=== PATIENT | female | born 1995 | race Caucasian/White ===

== ENCOUNTER 2022-11-01 18:08 | Observation (INO) | payer MEDICAID, SELFPAY ==
[2022-11-01 18:10] VITALS: BP 130/76; PULSE 84; RESP 20; TEMP 36.8; O2SAT 94; BMI 28.9
--- NOTE | 2022-11-01 18:50 | HP.PCM.HOS_ITS ---
HPI - General General Date of Admission: 11/01/22 Date of Service: 11/01/22 Chief Complaint: Acute Opiate Withdrawal. HPI Narrative The patient is a 27 y/o F w/ PMHx: Asthma, Anxiety and Depression/Bipolar disorder, Tobacco use, Polysubstance abuse (Fentanyl, Cocaine, smoked, approximately 1 g daily) who presents to the [facility] ED on 11/01/22 with history of approximately 1 week of productive cough of green sputum worsening with congestion, dyspnea and ongoing coughing bouts with fatigue and malaise as well as sweats although no fevers with unclear ill contacts with notable wheezing in addition to decision for detoxification with last opioid usage approximately 8 hours prior to presentation with onset of patient reported abdominal discomfort, generalized body aches, fatigue, restlessness, diaphoresis and yawning interested in obtaining clean status at this time. She notes that she only smokes both fentanyl and the cocaine and uses approximately 1 g daily. Work-up in the ED included T98.2, heart rate 84, BP 130/76, respiratory rate 20, 84% on room air, pending CBC, CMP, urine drug screen, ethyl alcohol level, chest x-ray upon requested evaluation of patient. serum testing is also pending and discussed with ED physician that as long as her testing was negative we could proceed with admission. In the ED given significant wheezing and pulmonary complaints as discussed with ED physician patient ministered burst pre dnisone 40 mg p.o. x1 as well as albuterol and COVID rapid antigen pending. PFSH Medical History Asthma Bipolar 1 disorder Polysubstance abuse Tobacco use Home Medications gabapentin 800 mg tablet 800 mg PO TID 11/01/22 [History Last Taken Unknown] quetiapine 400 mg tablet 400 mg PO QHS 11/01/22 [History Last Taken Unknown] Allergy/AdvReac Type Severity Reaction Status Date / Time No Known Allergies Allergy Verified 11/01/22 18:10 Family History (Updated 11/01/22 @ 19:[address] Daylin Nichols MD) Mother CAD (coronary artery disease) Heart disease Hypertension Myocardial infarction other (Patient does not know her father nor his medical history.) Surgical History (Updated 11/01/22 @ 19:[address] Daylin Nichols MD) History of appendectomy S/P tonsillectomy and adenoidectomy Social History (Updated 11/01/22 @ 19:[address] Daylin Nichols MD) household members: none Smoking Status: Current every day smoker tobacco type: cigarettes Smoking packs per day: 2 Smoking cigarettes per day: 40.0 alcohol intake: current alcohol intake frequency: a few times a month substance use type: crack/cocaine and other details: Fentanyl, Cocaine, both she notes smoking, ~ 1 gm daily, denies IVDA. ROS ROS Narrative Admission Review of Systems: CONSTITUTIONAL: No weight loss, fever, + chills, weakness or fatigue. HEENT: + Congestion, hoarse with coughing, sore throat. Eyes: No visual loss, blurred vision, double vision or yellow sclerae. Ears, Nose, Throat: No hearing loss. SKIN: No rash or itching, lesions, wounds. CARDIOVASCULAR: No chest pain, chest pressure or chest discomfort, palpitations, edema, orthopnea, syncopal events. RESPIRATORY: + Shortness of breath, cough with productive sputum, wheezing. No hemoptysis. GASTROINTESTINAL: + anorexia, general abdominal discomfort/cramping. No nausea, vomiting or diarrhea, melena, BRBPR. GENITOURINARY: No dysuria, frequency, urgency or retention. NEUROLOGICAL: + Restlessness. No headache, dizziness, syncope, paralysis, ataxia, numbness or tingling in the extremities, focal weakness, change in bowel or bladder control, seizure. MUSCULOSKELETAL: + muscle, back pain, joint pain or stiffness. HEMATOLOGIC: No anemia, bleeding or bruising. LYMPHATICS: No enlarged nodes. No history of splenectomy. PSYCHIATRIC: + history of depression or anxiety. ENDOCRINOLOGIC: + reports of sweating, cold or heat intolerance. No polyuria or polydipsia. ALLERGIES: + history of asthma, rhinitis. Vital Signs Vital Signs Vital Signs: 11/01/22 18:10 Temperature 98.2 F Temperature Source Temporal Pulse Rate 84 Respiratory Rate 20 H Blood Pressure 130/76 H Blood Pressure Mean 94 Pulse Ox 94 Oxygen Delivery Method Room Air Weight Weight: 190 lb 3.2 oz Body Mass Index (BMI) 28.9 Physical Exam Narrative Physical Examination: General: Awakens to stimuli, alert once interacting, oriented times greater than 3, following commands, seated upright in the ED bed, fatigued and ill-appearing, mildly unkempt. Skin: Normal color, normal turgor, no icterus, no cyanosis except occasional abrasion. HEENT: AT/NC, EOMI, PERRLA, M dry M, no carotid bruits or JVD noted. Lungs: Tight, severely diminished, diffuse expiratory wheezing, mildly increased respiratory rate but no distress, no obvious marked rales or rhonchi. Heart: Regular rate and rhythm; no gallop, rub audible. Abdomen: Soft, overweight, NTTP, hyperactive BS, no marked distention, no appreciated HSM. Extremities: No cyanosis, clubbing, or edema. Neurological: Patient awake, alert, oriented as noted, cognitive function suspect mildly decreased from baseline; pupils equally reactive to light and accommodation, cranial nerves II-XII grossly normal, moving all 4 extremities, no focal deficits, strength moderately to severely global decrease secondary to acute presentation complaints, initially significantly fatigued and lethargic but awakens with discussion Psychiatric: Affect appears flat, fatigued, ill-appearing, no acute evidence of depressive or anxiety feelings but does have underlying notable history. Results Lab / Micro Data 11/01/22 18:49 Assessment & Plan Assessment/Plan (1) Opiate withdrawal: PLAN: Plan The patient is a 27 y/o F w/ PMHx: Asthma, Anxiety and Depression/Bipolar disorder, Tobacco use, Polysubstance abuse (Fentanyl, Cocaine) who presents to the [facility] ED on 11/01/22 with acute opiate withdrawal requesting detoxification. #1. Acute Opiate Withdrawal: Routine labs including CBC, CMP, urine for drug screen obtained in the ED and pending upon requested evaluation of patient, if testing is negative then will plan admission to the medical surgical floor and will initiate and continue on protocol with tapering course of Subutex, as needed tylenol, ibuprofen, bowel regimen, gabapentin, Bentyl, Vistaril, methocarbamol, clonidine, PRN nightly trazodone for insomnia, IV fluids, IV antiemetics. Once patient clinically improved and completion of taper nearing will plan consultation with case management for transition to next level of rehabilitation care. #2. Chronic asthma with Acute Exacerbation and Suspected Acute Bronchitis: Patient in the ED with wheezing with albuterol administrations, currently per list outpatient does not appear to be on any regimen, will have as needed a lbuterol if necessary, and given presentation will also maintain in the interim on ATC budesonide therapy, will continue burst prednisone therapy initiated in the ED, will obtain full respiratory viral panel, COVID antigen pending per ED, sputum requested, will place on Mucinex, procalcitonin requested, encourage tobacco cessation, given description of productive cough with green sputum and symptoms ongoing for at least a week with dyspnea, congestion and chills we will add antibiotics (oral cefdinir) at this time but certainly can de-escalate if appropriate. CXR pending upon evaluation of patient and if marked appearing, may alter abx as needed. #3. Polysubstance Abuse: Given significant polysubstance abuse history we will obtain HIV, hepatitis as well as RPR given significant findings in the community. If patient is hepatitis C positive she would currently not candidate for hep C treatment currently as needs to be clean, sober x 6 months, documented attendance NA or AA meetings, counseling and ongoing negative drug screens. Encouraged PCP establishment and follow-up. #4. Anxiety depression/bipolar disorder: We will continue patient home Seroquel regimen but currently clarifying if this is the only medication if she is actively taking also, although would benefit from continued ongoing counseling given substance abuse as her psychiatric disorders likely contributing to on going usage. #5. Tobacco Abuse: Encouraged cessation, inpatient consultation per RT, NR if desired. #6. DVT Prophylaxis: Low risk, encourage ambulation. Charges/Coding Visit Charges Inpatient E&M: 86912 Init Hosp L3
--- NOTE | 2022-11-01 18:55 | RAD_ITS ---
STUDY: X-RAY CHEST REASON FOR EXAM: Female, 27 years old. CHEST PAIN wheezing TECHNIQUE: XR Chest 1 View COMPARISON: None FINDINGS: There is no demonstrated pleural abnormality. There is bilateral infiltrate / atelectasis. Normal size heart. Normal mediastinum and ruddy. Normal visualized pulmonary arteries. Normal visualized aortic arch and descending thoracic aorta. Normal visualized thoracic spine. Normal visualized ribs, clavicles, and shoulders. There are no acute findings of the upper abdomen. RAD/Chest 1 View (Portable) IMPRESSION: There are bilateral pleural effusions. There are bilateral infiltrates. Electronically Signed: Micah Dumont MD at 19:26 EDT ,
[2022-11-01 19:23] LABS: ALB/GLOB Ratio 0.7 RATIO (0.9-2.4); AST(SGOT) 22 U/L (15-37); Alanine Aminotransfer ALT/SGPT 20 U/L (13-56); Albumin, Serum 2.5 g/dL (3.2-5.0); Alkaline Phosphatase 71 U/L (45-117); Anion Gap 9 (5-15); BUN 8 mg/dL (7-18); BUN/Creat Ratio 13.1 RATIO (10-20); Calcium,Total 7.6 mg/dL (8.5-10.1); Chloride 105 mmol/L (98-107); Creatinine, Serum 0.61 mg/dL (0.55-1.02); EST Glomerular Filtration Rate 126 mL/min (>60); Est Glom Filt Rate - Afr Amer 153 mL/min (>60); Estimated Creatinine Clearance 142.22 ml/min; Globulin 3.8 g/dL (2.2-4.2); Glucose 90 mg/dL (74-106); Potassium 3.4 mmol/L (3.5-5.1); Protein, Total 6.3 g/dL (6.4-8.2); Sodium Level 136 mmol/L (136-145)
[2022-11-01 19:24] LABS: Amphetamine Urine VISTA NEGATIVE (<1000 ng/mL); Barbiturate Urine VISTA NEGATIVE (< 200 ng/mL); Benzodiazepine Urine VISTA POSITIVE (< 200 ng/mL); Cocaine Urine VISTA POSITIVE (< 300 ng/mL); Ecstacy Urine VISTA POSITIVE (< 500 ng/mL); Methadone Urine VISTA NEGATIVE (< 300 ng/mL); PCP Urine VISTA NEGATIVE (< 25 ng/mL); THC Urine VISTA POSITIVE (< 50 ng/mL); Vista UDS pH Range 5
[2022-11-01 19:31] LABS: Absolute Lymphocyte Count 2.35 X10^3/uL (0.83-4.51); Absolute Neutrophil Count 10.6 X10^3/uL (2.0-7.7); Basophil# 0.02 X10^3/uL; Basophil% 0.1 % (0-1); Eosinophil# 0.28 X10^3/uL; Hematocrit 36.8 % (37-47); Hemoglobin 12.3 g/dL (12.0-15.0); Lymphocyte # 2.35 X10^3/ul (0.83-4.51); Lymphocyte % 16.9 % (19-41); Mean Corp Hgb Conc 33.4 g/dL (32-36); Mean Corpuscular Hgb 29.5 pg (27.0-32.0); Mean Corpuscular Volume 88.2 fL (81-99); Mean Platelet Vol. 8.7 fl (6.2-12.0); Monocyte# 0.61 X10^3/uL; Monocyte% 4.4 % (0-10); NRBC Flagged by Analyzer 0 % (0-5); Neutrophil # 10.59 X10^3/uL (2.7-7.7); Neutrophil % 76.2 % (47-70); Platelet Count 271 K/mm3 (150-450); RBC Distribution Width CV 12.1 % (11.6-14.6); RBC Distribution Width SD 39.1 fl (35.1-43.9); Red Blood Count 4.17 M/mm3 (4.2-5.4); White Blood Count 13.9 K/mm3 (4.4-11.0)
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
[2022-11-01] MEDS: Albuterol Sulfate 8 gm Inhaler (60 puffs) 4 PUFF INHALATION (19:41)
[2022-11-01] MEDS: INHALER, ASSIST DEVICES 1 EACH SPACER INHALATION (19:42)
[2022-11-01] MEDS: predniSONE 20 MG Tablet 40 MG PO (19:53)
[2022-11-01 19:55] LABS: Internal QC Validated? YES +Cl - CLEAR BKGD; Pregnancy, Serum, hCG Quali. NEGATIVE Negative
[2022-11-01 20:00] LABS: Alcohol, Blood (Medical)-Serum < 3.0 mg/dL
[2022-11-01 20:21] LABS: Magnesium 2.3 mg/dL (1.6-2.6)
[2022-11-01 20:31] LABS: HIV - WCH Non-Reactive (Nonreactive); Procalcitonin < 0.01 ng/mL (0.00-0.09); Syphilis Antibodies Non-reactive
[2022-11-01 20:52] VITALS: BP 130/76; PULSE 84; RESP 18; TEMP 36.8; O2SAT 94
--- NOTE | 2022-11-01 21:27 | ED.RN ---
Original blood drawn from right foot d/t pt being a hard stick. Multiple attempts at IV for antibiotics. 24G IV to left wrist with blood cultures done. Unsuccesful at getting second set of cultures. MD notified and ok to start antibiotics.
[2022-11-01] MEDS: Azithromycin 500 MG in Dextrose 5%-Water (250mL Bag) 250 ML 250 MG IV (21:43)
[2022-11-01 21:44] VITALS: BP 139/76; PULSE 86; RESP 17; O2SAT 93
[2022-11-01 22:08] VITALS: BP 141/82; PULSE 62; RESP 17; TEMP 37.1; O2SAT 96
[2022-11-01 22:10] VITALS: BMI 27.6
[2022-11-01] MEDS: Cefdinir 300 MG Capsule PO (22:33)
[2022-11-01] MEDS: guaiFENesin 1,200 MG Tablet 1200 MG PO (22:33)
[2022-11-01] MEDS: QUEtiapine 100 MG Tablet PO (22:33)
[2022-11-01] MEDS: Azithromycin 250 MG Tablet 500 MG PO (22:34)
[2022-11-01] MEDS: Lactated Ringers 1,000 ML 125 ML IV (22:44)
[2022-11-01] MEDS: Potassium Chloride Oral Tablet 20 MEQ 40 MEQ PO (22:44)
[2022-11-01] MEDS: Gabapentin 800 MG Tablet PO (22:44)
[2022-11-01 23:02] LABS: Hepatitis B Surface Antibody Non-Reactive; Hepatitis B Surface Antigen Non-Reactive (Nonreactive); Hepatitis C Antibody Non-Reactive (Nonreactive)
[2022-11-01 23:30] VITALS: O2SAT 99
[2022-11-02] VITALS (7 sets, daily range): BP systolic 127–150; BP diastolic 71–82; PULSE 71–85; RESP 16–24; TEMP 36.9–37.3; O2SAT 91–96
[2022-11-02] MEDS: Gabapentin 800 MG Tablet PO ×3 (06:36→22:32)
[2022-11-02] MEDS: Budesonide Respules 0.5 MG/2 ML AMPUL.NEB. INHALATION (06:54)
--- NOTE | 2022-11-02 08:18 | NURSING ---
0700 and 0800 COWS assessment not completed per order d/t pt sleeping.
[2022-11-02] MEDS: QUEtiapine 100 MG Tablet PO ×2 (10:28→22:32)
[2022-11-02] MEDS: Cefdinir 300 MG Capsule PO (10:28)
[2022-11-02] MEDS: predniSONE 20 MG Tablet 40 MG PO (10:28)
[2022-11-02] MEDS: guaiFENesin 1,200 MG Tablet 1200 MG PO ×2 (10:28→22:31)
[2022-11-02] MEDS: Ibuprofen 600 MG Tablet PO (14:02)
--- NOTE | 2022-11-02 16:11 | PCM.PN.HOSP ---
Reason for Visit Reason for Visit: Diagnoses Opioid use, unspecified with withdrawal (11/01/22) Subjective Subjective She reports some chest wall pain when taking deep breaths and cough but does feel better than when she presented Objective Data Objective Data Vital Signs: Vital Signs Temp Pulse Resp BP Pulse Ox O2 Del Method O2 Flow Rate 99.2 F H 85 16 139/81 H 92 Nasal Cannula 2 11/02/22 13:56 11/02/22 13:56 11/02/22 13:56 11/02/22 13:56 11/02/22 13:56 11/02/22 13:56 11/02/22 13:56 Oxygen Flow Rate (L/min) 2 Oxygen Delivery Method Nasal Cannula Weight: 82.4 kg Body Mass Index (BMI) 27.6 Intake & Output: Intake and Output for Last 24 Hours 10/31/22 11/01/22 11/02/22 23:59 23:59 23:59 Intake Total 263.33 / 263.33 1741.67 / 1741.67 Balance 263.33 / 263.33 1741.67 / 1741.67 Lab / Micro Data 11/01/22 19:10 11/01/22 18:49 Labs: Laboratory Results - last 24 hr 11/01/22 18:49: Sodium 136, Potassium 3.4 L, Chloride 105, Carbon Dioxide 22.0, Anion Gap 9, BUN 8, Creatinine 0.61, Estim Creat Clear Calc 142.22, Est GFR (MDRD) Af Amer 153, Est GFR (MDRD) Non-Af 126, BUN/Creatinine Ratio 13.1, Glucose 90, Calcium 7.6 L, Total Bilirubin 0.40, AST 22, ALT 20, Alkaline Phosphatase 71, Total Protein 6.3 L, Albumin 2.5 L, Globulin 3.8, Albumin/Globulin Ratio 0.7 L 11/01/22 18:51: Urine Opiates Screen NEGATIVE, Urine Methadone Screen NEGATIVE, Ur Barbiturates Screen NEGATIVE, Ur Phencyclidine Scrn NEGATIVE, Ur Amphetamines Screen NEGATIVE, MDMA (Ecstasy) Screen POSITIVE H, U Benzodiazepines Scrn POSITIVE H, Urine Cocaine Screen POSITIVE H, U Cannabinoids Screen POSITIVE H, Ur Drug Screen Comment 11/01/22 19:10: WBC 13.9 H, RBC 4.17 L, Hgb 12.3, Hct 36.8 L, MCV 88.2, MCH 29.5, MCHC 33.4, RDW Std Deviation 39.1, RDW Coeff of Reema 12.1, Plt Count 271, MPV 8.7, Immature Gran % (Auto) 0.400, Neut % (Auto) 76.2 H, Lymph % (Auto) 16.9 L, [place] % (Auto) 4.4, Eos % (Auto) 2.0, Baso % (Auto) 0.1, Absolute Neuts (auto) 10.6 H, Absolute Lymphs (auto) 2.35, Nucleated RBC % 0, Magnesium 2.3, Procalcitonin < 0.01, Serum , Qual NEGATIVE, Ethyl Alcohol < 3.0, Syphilis Total Ab Non-reactive, HIV 1&2 Antibody Non-Reactive 11/01/22 22:02: Hep Bs Antigen Non-Reactive, Hep Bs Antibody Non-Reactive, Hepatitis C Antibody Non-Reactive Micro: Microbiology 11/01/22 22:30 Sputum, Expectorated/Coughed Gram Stain - Final 11/01/22 22:17 Mucosa - Nasopharyngeal Respiratory Panel (PCR) - Final 11/01/22 18:49 Urine, Clean Catch Legionella Antigen - Final 11/01/22 18:49 Urine, Clean Catch Streptococcus pneumoniae Antigen (M - Final Streptococcus pneumonia Ag 11/01/22 19:10 Nasal Secretion SARS-CoV-2 Antigen (Rapid) - Final Radiography Diagnostic Testing: Radiology Impression Chest X-Ray 11/01/22 18:55 IMPRESSION: There are bilateral pleural effusions. There are bilateral infiltrates. Electronically Signed: Micha Dumont MD at 19:26 EDT Reading Location ID and State: [facility] / ID , Service support , Physical Exam Narrative General: Alert, oriented, no apparent distress HEENT: Atraumatic, normocephalic Eyes: Anicteric, normal conjunctiva, extraocular movements grossly intact Neck: Supple Respiratory: Somewhat diminished at right base, normal respiratory effort Cardiovascular: Regular rate and rhythm GI: Soft, nontender, nondistended Extremities: No edema Musculoskeletal: Moving all extremities Neuro: No overt focal neurological deficits Skin: No rashes appreciated Psych: Cooperative Assessment & Plan Assessment/Plan (1) Opiate withdrawal: PLAN: Plan The patient is a 27 y/o F w/ PMHx: Asthma, Anxiety and Depression/Bipolar disorder, Tobacco use, Polysubstance abuse (Fentanyl, Cocaine) who presents to the [facility] ED on 11/01/22 with acute opiate withdrawal requesting detoxification. #Acute opiate withdrawal - Subutex taper initiated - As needed Tylenol, ibuprofen, bowel regimen, gabapentin, Bentyl, Vistaril, methocarbamol, clonidine - As needed trazodone nightly - As needed antiemetics -UDS positive for MDMA, benzodiazepines, cocaine, cannabinoid patient reported fentanyl and cocaine but did not note other drug use, will need to monitor closely for any other kinds of withdrawal -Once patient begins to clinically improve will discuss further discharge planning #Hypoxia secondary to community-acquired pneumonia -Patient was 84% on room air in ED, chest x-ray with bilateral infiltrates and white blood cell count 13.9 -Sputum culture with gram-positive diplococci and urine antigen positive for strep pneumo -given patient 92% on 2 L O2 will switch to IV antibiotics and treat with Rocephin, can continue azithromycin at this time but will likely be able to de-escalate -Has had some chest wall pain, suspect this is pleuritic secondary to pneumonia, supportive care -Continue p.o. prednisone and Mucinex, additionally patient on inhaled budesonide, albuterol as needed -Add incentive spirometry #Polysubstance use -Strongly advise cessation -UDS as above -Hepatitis, syphilis, HIV nonreactive #Anxiety depression/bipolar disorder: Patient continuing on Seroquel and gabapentin #Tobacco Abuse: Encouraged cessation, inpatient consultation per RT, NR if desired. #DVT Prophylaxis: Low risk, encourage ambulation. Time spent in the patient's overall evaluation,decision-making process, review of diagnostic data, adjustment of management, discussion with other providers, nursing nursing and ancillary staff involved in patient's care documentation, 36 minutes Charges/Coding Visit Charges Inpatient E&M: 62572 Subs Hosp L2
[2022-11-02] MEDS: 0.9% Saline Lock 10 ML Syringe IV (21:57)
[2022-11-02] MEDS: Ceftriaxone 1 GM/50 ML BAG IV (21:57)
[2022-11-02] MEDS: Azithromycin 250 MG Tablet 500 MG PO (22:31)
[2022-11-02] MEDS: Buprenorphine HCl 2 MG TAB.SUBL SL (22:31)
[2022-11-03] VITALS (8 sets, daily range): BP systolic 140–166; BP diastolic 85–98; PULSE 81–99; RESP 16–20; TEMP 36.4–37; O2SAT 95–98
[2022-11-03] MEDS: cloNIDine HCl 0.1 MG Tablet PO ×2 (03:47→13:11)
[2022-11-03] MEDS: hydrOXYzine PAM 25 MG Capsule 50 MG PO ×3 (03:47→18:47)
[2022-11-03] MEDS: hydrALAZINE 20 MG/ML Vial 10 MG IV (03:56)
[2022-11-03] MEDS: Buprenorphine HCl 2 MG TAB.SUBL SL ×2 (05:15→13:10)
[2022-11-03] MEDS: Gabapentin 800 MG Tablet PO ×2 (05:15→13:10)
[2022-11-03] MEDS: Budesonide Respules 0.5 MG/2 ML AMPUL.NEB. INHALATION ×2 (07:01→19:32)
--- NOTE | 2022-11-03 08:02 | PN.HOSP_ITS ---
Reason for Visit Reason for Visit: Diagnoses Opioid use, unspecified with withdrawal (11/01/22) Subjective Subjective Patient 89 and restless today, did admit to benzodiazepine use, does feeling her breathing slightly better, no change with cough Objective Data Objective Data Vital Signs: Vital Signs Temp Pulse Resp BP Pulse Ox O2 Del Method O2 Flow Rate 98.6 F 81 19 H 151/85 H 96 Nasal Cannula 3 11/03/22 04:00 11/03/22 07:01 11/03/22 07:01 11/03/22 04:59 11/03/22 07:01 11/03/22 07:01 11/03/22 07:01 Oxygen Flow Rate (L/min) 3 Oxygen Delivery Method Nasal Cannula Weight: 82.4 kg Body Mass Index (BMI) 27.6 Intake & Output: Intake and Output for Last 24 Hours 11/01/22 11/02/22 11/03/22 23:59 23:59 23:59 Intake Total 263.33 / 263.33 2791.67 / 2791.67 Balance 263.33 / 263.33 2791.67 / 2791.67 Lab / Micro Data 11/01/22 19:10 11/01/22 18:49 Micro: Microbiology 11/01/22 22:30 Sputum, Expectorated/Coughed Gram Stain - Final 11/01/22 22:30 Sputum, Expectorated/Coughed Respiratory Culture - Preliminary Streptococcus pneumoniae 11/01/22 22:17 Mucosa - Nasopharyngeal Respiratory Panel (PCR) - Final 11/01/22 18:49 Urine, Clean Catch Legionella Antigen - Final 11/01/22 18:49 Urine, Clean Catch Streptococcus pneumoniae Antigen (M - Final Streptococcus pneumonia Ag 11/01/22 19:10 Nasal Secretion SARS-CoV-2 Antigen (Rapid) - Final Physical Exam Narrative General: Alert, oriented, no apparent distress HEENT: Atraumatic, normocephalic Eyes: Anicteric, normal conjunctiva, extraocular movements grossly intact Neck: Supple Respiratory: Improving respiratory effort, normal respiratory effort Cardiovascular: Regular rate and rhythm GI: Soft, nontender, nondistended Extremities: No edema Musculoskeletal: Moving all extremities Neuro: No overt focal neurological deficits Skin: No rashes appreciated Psych: Cooperative Assessment & Plan Assessment/Plan (1) Opiate withdrawal: PLAN: Plan The patient is a 27 y/o F w/ PMHx: Asthma, Anxiety and Depression/Bipolar disorder, Tobacco use, Polysubstance abuse (Fentanyl, Cocaine) who presents to the [facility] ED on 11/01/22 with acute opiate withdrawal requesting detoxification. #Acute opiate withdrawal and benzo withdrawal - Subutex taper initiated - As needed Tylenol, ibuprofen, bowel regimen, gabapentin, Bentyl, Vistaril, methocarbamol, clonidine - As needed trazodone nightly - As needed antiemetics -UDS positive for MDMA, benzodiazepines, cocaine, cannabinoid patient reported fentanyl and cocaine but did not note other drug use, will need to monitor closely for any other kinds of withdrawal -Once patient begins to clinically improve will discuss further discharge planning -11/03: Continue Subutex taper and supportive care, patient reports that she was taking a green Klonopin 3 times daily for a long time before coming in, will add phenobarbital #Hypoxia secondary to community-acquired pneumonia secondary to strep pneumonia -Patient was 84% on room air in ED, chest x-ray with bilateral infiltrates and white blood cell count 13.9 -Sputum culture with gram-positive diplococci and urine antigen positive for strep pneumo -given patient 92% on 2 L O2 will switch to IV antibiotics and treat with Rocephin, can continue azithromycin at this time but will likely be able to de- escalate -Has had some chest wall pain, suspect this is pleuritic secondary to pneumonia, supportive care -Continue p.o. prednisone and Mucinex, additionally patient on inhaled budesonide, albuterol as needed -Add incentive spirometry -11/03: Patient growing strep pneumo and sputum culture and urine antigen, Rocephin changed to 2 g every 24 however patient was restless and her IV came out and they were unable to get another IV, given respiratory improvement will transition to p.o., can always get midline and resume IV antibiotics if needed however suspect she will do okay on oral cefdinir, continue Mucinex, continue prednisone, continue Pulmicort and supportive care #Polysubstance use -Strongly advise cessation -UDS as above -Hepatitis, syphilis, HIV nonreactive #Anxiety depression/bipolar disorder: Patient continuing on Seroquel and gabapen tin #Tobacco Abuse: Encouraged cessation, inpatient consultation per RT, NR if desired. #DVT Prophylaxis: Low risk, encourage ambulation. Time spent in the patient's overall evaluation,decision-making process, review of diagnostic data, adjustment of management, discussion with other providers, n ursing nursing and ancillary staff involved in patient's care documentation, 36 minutes Charges/Coding Visit Charges Inpatient E&M: 80343 Subs Hosp L2
[2022-11-03] MEDS: Cefdinir 300 MG Capsule PO (09:18)
[2022-11-03] MEDS: predniSONE 20 MG Tablet 40 MG PO (09:19)
[2022-11-03] MEDS: QUEtiapine 100 MG Tablet PO (09:19)
[2022-11-03] MEDS: guaiFENesin 1,200 MG Tablet 1200 MG PO (09:19)
[2022-11-03] MEDS: Methocarbamol 750 MG Tablet PO (09:45)
[2022-11-03] MEDS: Dicyclomine 10 MG Capsule 20 MG PO (09:45)
--- NOTE | 2022-11-03 12:52 | ADDICTION ---
This commercial underwriter met with PT to conduct ASAM, MSE, AUDIT, DUDIT assessments and to plan for d/c. PT A+Ox4 and participated actively. All assessments completed,and d/c plan placed in PT's chart. PT plans to f/u with individual counselor at [facility] for outpatient treatment services. PT did not indicate a need for transportation post d/c from [facility].
[2022-11-03] MEDS: Phenobarbital 32.4 MG Tablet 64.8 MG PO (13:10)
[2022-11-03] MEDS: Ibuprofen 600 MG Tablet PO (18:47)
== END 2022-11-03 19:56 | disposition left against medical advice (07) ==
LOC: ED 19:40 → PCU 11-02 07:10
PROVIDERS: Admitting Provider Family Medicine; Emergency Provider Emergency Medicine; Visit Provider Internal Medicine
DX: F11.23 Opioid dependence with withdrawal (principal); F14.10 Cocaine abuse, uncomplicated; F31.9 Bipolar disorder, unspecified; J45.901 Unspecified asthma with (acute) exacerbation; F17.210 Nicotine dependence, cigarettes, uncomplicated; R09.02 Hypoxemia
CPT/HCPCS: 36415; 71045; 80053; 80307; 82077; 83735; 84145; 84703; 85025; 86703; 86706; 86780; 86803; 87040; 87070; 87077; 87186; 87205; 87340; 87449; 87633; 87811; 93005; 94640; 94668; 97802; 99284; 99406; H0012; J7050; J7120; A4216